=== PATIENT | female | born 1965 | race African-American/Black ===

== ENCOUNTER 2017-05-12 06:47 | Emergency (ER) | payer OTHER ==
[2016-09-05 13:03] VITALS: BP 123/74
[~2017-05-12] VITALS: Ht 157.5 cm; Wt 72.6 kg
[2017-05-12] MEDS ORDERED: KETOROLAC 60 MG/2 ML INJ. IM ONE (07:30)
[2017-05-12] MEDS ORDERED: diazePAM 5 MG TABLET PO ONE (07:30)
[2017-05-12] MEDS ORDERED: HYDROcodone/APAP 5/325MG 1 TAB TABLET PO ONE (07:30)
[2017-05-12] MEDS ORDERED: HYDR-2758 PO (07:33)
[2017-05-12] MEDS ORDERED: NAPR500T PO (07:33)
[2017-05-12] MEDS ORDERED: DIAZ5TAB PO (07:33)
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
== END 2017-05-12 07:40 | disposition home or self-care (01) ==
LOC: ER 06:47
DX: S13.4XXA Sprain of ligaments of cervical spine, initial encounter (principal); S50.02XA Contusion of left elbow, initial encounter; S80.02XA Contusion of left knee, initial encounter; Z86.2 Personal history of diseases of the blood and blood-forming organs and certain disorders involving the immune mechanism; V49.88XA Car occupant (driver) (passenger) injured in other specified transport accidents, initial encounter; Y93.89 Activity, other specified; Y99.8 Other external cause status; Y92.488 Other paved roadways as the place of occurrence of the external cause
CPT/HCPCS: 96372; 99283; J1885

== ENCOUNTER → 2020-01-19 | Outpatient (CLI) | payer OTHER ==
[2017-05-12 06:59] VITALS: BP 129/63
[~2020-01-19] MED LIST: DIAZ5TAB PO; HYDR-2761 PO; NAPR-683 PO
[2020-01-19 14:25] LABS: BASO # 0.1 x10^3/uL (0.0-0.2); BASO % 1 % (0-3); EOS # 0.2 x10^3/uL (0.0-0.7); EOS % 2 % (0-3); LYMPH # 2.7 x10^3/uL (1.0-4.8); LYMPH % 29 % (24-48); MEAN CORPUSCULAR HEMOGLOBIN 28 pg (25-35); MEAN CORPUSCULAR HGB CONC 35 g/dL (31-37); MEAN CORPUSCULAR VOLUME 81 fL (79-100); MONO # 0.7 x10^3/uL (0.0-1.1); MONO % 7 % (0-9); NEUT # 5.6 x10^3/uL (1.8-7.7); NEUT % 60 % (31-73); PLATELET COUNT 350 x10^3/uL (140-400); RED BLOOD COUNT 2.16 x10^6/uL (3.50-5.40); RED CELL DISTRIBUTION WIDTH 26.6 % (11.5-14.5); WHITE BLOOD COUNT 9.3 x10^3/uL (4.0-11.0)
[2020-01-19 14:34] LABS: HEMATOCRIT 17.5 % (36.0-47.0); HEMOGLOBIN 6.1 g/dL (12.0-15.5)
[2020-01-19 15:05] LABS: ANISOCYTOSIS MARKED; PLT ESTIMATE ADEQUATE (ADEQUATE); POLYCHROMASIA MOD; SICKLE CELLS MOD; TARGET CELLS MOD
== END | disposition home or self-care (01) ==
LOC: LAB 13:49
PROVIDERS: ATTEND Internal Medicine Hematology & Oncology
DX: D57.1 Sickle-cell disease without crisis (principal)
CPT/HCPCS: 36415; 85025